=== PATIENT | male | born 1975 | race Caucasian/White ===

== ENCOUNTER → 2020-12-30 08:34 | Outpatient (CLI) | payer BC, SELFPAY ==
[2020-12-30 10:35] LABS: Vitamin D,25 Hydroxy 17.5 ng/mL
[2020-12-30 10:53] LABS: Anion Gap 7 (5-15); BUN 15 mg/dL (7-18); BUN/Creat Ratio 13.8 RATIO (10-20); Calcium,Total 8.7 mg/dL (8.5-10.1); Chloride 105 mmol/L (98-107); Cholesterol 225 mg/dL (200); Creatinine, Serum 1.09 mg/dL (0.70-1.30); EST Glomerular Filtration Rate 77 mL/min (>60); Est Glom Filt Rate - Afr Amer 93 mL/min (>60); Glucose 103 mg/dL (74-106); High Density Lipoprotein 46 mg/dL; Potassium 3.9 mmol/L (3.5-5.1); Sodium Level 139 mmol/L (136-145); Thyroid Stim Hormone (TSH) 1.26 uIU/mL (0.358-3.74); Triglycerides 213 mg/dL; Very Low Density Lipoprotein 43 mg/dL (5-40)
== END ==
PROVIDERS: PCP Family Medicine; Referring Provider Family Medicine; Visit Provider Family Medicine
DX: Z00.00 Encounter for general adult medical examination without abnormal findings (principal); R53.83 Other fatigue
CPT/HCPCS: 36415; 80048; 80061; 82306; 84403; 84443

== ENCOUNTER 2021-02-12 15:01 | Outpatient (RCR) | payer BC, SELFPAY | END 2021-04-07 23:59 | LOC: IMMUN 15:01 | PROVIDERS: PCP Family Medicine; Referring Provider Family Medicine; Visit Provider Family Medicine | DX: Z23 Encounter for immunization (principal) | CPT/HCPCS: 0001A; 0002A; 91300 ==

== ENCOUNTER 2022-01-18 08:29 | Outpatient (CLI) | payer BC, SELFPAY ==
[2022-01-18 10:12] LABS: Anion Gap 2 (5-15); BUN 16 mg/dL (7-18); BUN/Creat Ratio 15.4 RATIO (10-20); Calcium,Total 8.4 mg/dL (8.5-10.1); Chloride 104 mmol/L (98-107); Cholesterol 211 mg/dL (200); Creatinine, Serum 1.04 mg/dL (0.70-1.30); EST Glomerular Filtration Rate 81 mL/min (>60); Est Glom Filt Rate - Afr Amer 98 mL/min (>60); Glucose 108 mg/dL (74-106); High Density Lipoprotein 55 mg/dL; Potassium 3.9 mmol/L (3.5-5.1); Sodium Level 138 mmol/L (136-145); Triglycerides 108 mg/dL; Very Low Density Lipoprotein 22 mg/dL (5-40)
[2022-01-18 13:43] LABS: Vitamin D,25 Hydroxy 37.2 ng/mL
== END 2022-01-18 23:59 | disposition home or self-care (01) ==
LOC: MFPLAB 08:32
PROVIDERS: PCP Family Medicine; Referring Provider Family Medicine; Visit Provider Family Medicine
DX: Z00.00 Encounter for general adult medical examination without abnormal findings (principal); E55.9 Vitamin D deficiency, unspecified
CPT/HCPCS: 36415; 80048; 80061; 82306

== ENCOUNTER → 2023-01-08 | Outpatient (CLI) | payer BC, SELFPAY ==
[2023-01-08 10:16] LABS: Anion Gap 4 (5-15); BUN 21 mg/dL (7-18); Calcium,Total 9.4 mg/dL (8.5-10.1); Chloride 103 mmol/L (98-107); Cholesterol 235 mg/dL (200); Creatinine, Serum 1.05 mg/dL (0.70-1.30); EST Glomerular Filtration Rate 80 mL/min (>60); Est Glom Filt Rate - Afr Amer 97 mL/min (>60); Glucose 109 mg/dL (74-106); High Density Lipoprotein 57 mg/dL; Potassium 4.3 mmol/L (3.5-5.1); Sodium Level 139 mmol/L (136-145); Triglycerides 105 mg/dL; Very Low Density Lipoprotein 21 mg/dL (5-40)
== END | disposition home or self-care (01) ==
PROVIDERS: PCP Family Medicine; Visit Provider Family Medicine
DX: Z00.00 Encounter for general adult medical examination without abnormal findings (principal)
CPT/HCPCS: 36415; 80048; 80061

== ENCOUNTER → 2023-04-25 | Outpatient (CLI) | payer BC, SELFPAY ==
--- NOTE | 2023-04-25 14:12 | RAD_ITS ---
STUDY: X-RAY - LEFT SHOULDER REASON FOR EXAM: Male, 47 years old. Shoulder pain. TECHNIQUE: 4 view(s) of the shoulder. COMPARISON: None. FINDINGS: Normal glenohumeral articulation. Normal acromioclavicular joint. Normal acromion. Normal humeral head and visualized proximal humerus. Normal soft tissues. Normal visualized pulmonary apex. RAD/Shoulder min 2 Views IMPRESSION: Normal x-ray examination of the shoulder. Electronically Signed: Roger Aburto MD at 15:55 EDT ,
== END | disposition home or self-care (01) ==
PROVIDERS: PCP Family Medicine; Referring Provider Family Medicine; Visit Provider Family Medicine
DX: M25.512 Pain in left shoulder (principal)
CPT/HCPCS: 73030

== ENCOUNTER 2023-05-13 13:10 | Outpatient (RCR) | payer BC, SELFPAY ==
--- NOTE | 2023-05-13 15:34 | HP.PTEVAL ---
Patient's Visit Information Visit Information Visit Information: MONTANA LAURA is a 48 year old M referred to Physical Therapy by Dr. Ray Barboza MD with a diagnosis of L shoulder pain. Date of Evaluation: 05/13/23 Physical Therapist: Emmett Fontenot DPT Visit Plan Frequency: Every Other Week Duration: 2 Months Plan: Start with progressive ROM exercise both passive and active. Pt. to work on his HEP for L shoulder ROM for 3-4 weeks then follow back up with PT as need. Pt. can follow up sooner if needed. Subjective Subjective: Pt. is here today for his initial evaluation with diagnosis of L shoulder pain. Pt. reports having increased L shoulder pain for ~1 month. He reports that his pain started after resuming in swimming laps again. Pt. reports since then he has had increased L shoulder pain. He has difficulty with lifting his arm above his head, behind his back and with lifting. Pt. had tried some exercises at home he saw on the internet, but has not had much success. He had an xray- read normal. Pt. does have some pain with sleeping on his L side as well. Pain L shoulder: Pain Intensity (Out of 10): 3 Pain Intensity Range: 0 and 6 Objective Objective: POSTURE: pt. has L shoulder in IR positioning with slight forward positioning. PALPATION: pt. has tenderness at anterior shoulder, near bicipital groove. NEURO: normal throughout BUEs. ROM: R shoulder: full motion no issues. L shoulder: AROM: flexion 145deg, abd 125deg, functional ER C3 aberrant motions, functional IR L3. Pt. had increased pain limiting all motions. PROM: flexion 155deg, abd 145deg, ER at 90deg of abd 30deg, IR at 90deg of abd 20deg. MMT: R shoulder: 5/5 throughout; L shoulder: flexion 5-/5 NE, abd 5-/5 NE, ER 4+/5 NE, IR 5/5 NE, ext 5/5 NE. Special Tests L Shoulder Drop Sign - IS Test: Negative L Shoulder Empty Can - SS: Negative L Shoulder Belly Press - SupScap: Negative L Shoulder Neer - Impingement: Positive L Shoulder Andino El - Impingement: Positive L Shoulder Speeds Test - Labrum/Biceps: Positive L Shoulder Shrug Sign - OA/Adhesive Capsulitis: Positive Balance/Special Test Scores Quick DASH Score: 22.7250 Goals Goal 1:: LTG: Pt. to be I with HEP for LUE ROM and strengthening. Goal Time Frame: 4-6 Weeks Goal 2:: LTG: pt. to have increased L shoulder AROM to full without increase in symptoms. Goal Time Frame: 4-6 Weeks Goal 3:: LTG: pt. to have 5/5 strength of LUE without increase in symptoms. Goal Time Frame: 4-6 Weeks Goal 4:: LTG: pt. to sleep without increase in L shoulder pain. Goal Time Frame: 4-6 Weeks Goal 5:: LTG: pt. to resume all recreational activities without increase in symptoms. Goal Time Frame: 4-6 Weeks Rehabilitation Potential Physical Therapy Diagnosis: Pt. has signs and symptoms consistent with L shoulder pain. Pt. has symptoms suggestive of adhesive capsulitis, most likely stemming from a bicipital tendinitis after increased OH activities. Pt. Rehabilitation Potential: Excellent Anticipated Interventions Patient/Client Instruction: Educate patient on: Condition, Plan of Care, Risk Factors and Benefits of Fitness Program For the Purpose of:: To facilitate caregiver knowledge, To improve self management, To prevent re-injury, To improve ability to perform tasks related to life management and To improve tolerance to ADL's Therapeutic Exercise to Include: Strength training, Power training, Postural training, Flexibilty training, Passive ROM and Active ROM For the Purpose of:: To decrease pain, To increase ROM, To increase oxygenation perfusion, To improve muscle performance and motor function, To improve ability to perform ADL's, To decrease soft tissue restriction and To increase flexibility/ROM Text: Thank you for the opportunity to evaluate your patient. For Medicare and Medicare HMO plans, please review the plan of care and approve it. It will need to be FAXED BACK to us at [phone] for Medicare purposes. For Medicare only, by signing this I certify the plan of care. Please let me know if there are questions or concerns regarding this plan of care. Physician Signature: Date:
== END 2023-05-13 19:00 | disposition home or self-care (01) ==
LOC: PT 13:10
PROVIDERS: PCP Family Medicine; Referring Provider Family Medicine; Visit Provider Family Medicine
DX: M25.512 Pain in left shoulder (principal)
CPT/HCPCS: 97110; 97161

== ENCOUNTER → 2024-01-07 | Outpatient (CLI) | payer BC, SELFPAY ==
--- OUTSIDE RECORDS SUMMARY | 2024-01-07 08:11 | XMS RPT_ITS | CCD ---
Author Name Unknown Address [address] [place] [id number] Organization [facility] Care Team Providers Care Bus Inspector Name Role Phone Unavailable Primary Care Provider Unavailabl e Allergies Allergy Classification Reported Allergen(s) Allergy Type Date of Onset Reaction(s) Facility (2 sources) Ampicillin; Translations: [AMPICILLIN] Drug Allergy 01-18-2013 [facility] (2 sources) Penicillins; Translations: [PENICILLINS] Drug Allergy 01-18-2013 [facility] Medications Current Medications Medication Drug Class(es) Dates Sig (Normalized) Sig (Original) cephalexin 500 mg oral capsule (1 source) Cephalosporin Antibacterial Start: 01-06-2023 End: 01-16-2023 take 1 capsule by mouth twice daily cephALEXin (KEFLEX) 500 mg capsule Indications: Strep throat Take 1 capsule by mouth twice daily for 10 days. 20 capsule 0 01/06/2023 01/16/2023 Active Completed/Discontinued Medications Medication Drug Class(es) Dates Sig (Normalized) Sig (Original) benzonatate 100 mg oral capsule (1 source) Non-narcotic Antitussive Start: 01-22-2016 take 1 capsule by mouth three times daily as needed for cough benzonatate (TESSALON PERLE) 100 mg capsule Indications: Acute bronchitis, unspecified organism Take 1 capsule by mouth three times daily as needed for Cough. 30 capsule 0 01/22/2016 Active Problems Problem Classification Problem Date Documented Da te Episodic/Chronic Other upper respiratory infections (2 sources) Sore throat symptom; Translations: [Acute pharyngitis, unspecified] Episodic Results Test Name Value Interpretation Reference Range Facil ity Vital Signs Date Time Vital Sign Value Performing Clinician Facnina litzain 01-06-2023 10:56-0500 Body temperature 98.2 [degF] Griffin Blair APRN.SALESPERSON [employer] Work Phone: [facility] 01-06-2023 10:56-0500 Body weight 89.45 kg Griffin Blair REHABILITATION COUNSELLOR.SALESPERSON [employer] Work Phone: [facility] 01-06-2023 10:56-0500 Diastolic blood pressure 66 mm[Hg] Griffin Blair REHABILITATION COUNSELLOR.SALESPERSON [employer] Work Phone: [facility] 01-06-2023 10:56-0500 Heart rate 67 /min Griffin Blair REHABILITATION COUNSELLOR.SALESPERSON [employer] Work Phone: [facility] 01-06-2023 10:56-0500 Respiratory rate 18 /min Griffin Blair REHABILITATION COUNSELLOR.SALESPERSON [employer] Work Phone: [facility] 01-06-2023 10:56-0500 SaO2% (BldA) [Mass fraction] 97 % Griffin Blair REHABILITATION COUNSELLOR.SALESPERSON [employer] Work Phone: [facility] 01-06-2023 10:56-0500 Systolic blood pressure 110 mm[Hg] Griffin Blair REHABILITATION COUNSELLOR.SALESPERSON [employer] Work Phone: [facility] Encounters Encounter Date Encounter Type Care Provider Facility Start: 01-06-2023 End: 01-06-2023 ambulatory Facility:[facility] Start: 01-06-2023 End: 01-06-2023 Patient encounter procedure Griffin Blair APRN.SALESPERSON [employer]ES Work Phone: [facility] Procedures Date Procedure Procedure Detail Performing Clinician Start: 01-06-2023 STREP A MOLECULAR (POC) [facility] Provider Plan of Treatment Date Care Activity Detail Author Start: 10-31-2022 DEPRESSION ASSESSMENT DEPRESSION ASSESSMENT [facility] Start: 07-01-2022 Influenza vaccination INFLUENZA (#1) [facility] Start: 2019 COLOGUARD (FIT-DNA) COLOGUARD (FIT-DNA) [facility] Start: 2019 Colonoscopy COLONOSCOPY [facility] Start: 2019 COLORECTAL CANCER SCREENING COLORECTAL CANCER SCREENING [facility] Start: [address] COLONOGRAPHY [facility] Start: 2019 DIABETES SCREEN DIABETES SCREEN [facility] Start: 2019 FECAL OCCULT BLOOD FECAL OCCULT BLOOD [facility] Start: 2019 SIGMOIDOSCOPY SIGMOIDOSCOPY [facility] Start: 2009 LIPID SCREEN LIPID SCREEN [facility] Start: 1993 Urine microalbumin profile DTAP,TDAP,TD (1 - Tdap) [facility] Start: 1992 HEPATITIS C SCREENING HEPATITIS C SCREENING [facility] Start: 1992 HIV SCREENING HIV SCREENING [facility] Start: 1974 COVID-19 VACCINE (#1) COVID-19 VACCINE (#1) [facility] Start: 1974 HEPATITIS B (1 of 3 - 3-dose series) HEPATITIS B (1 of 3 - 3-dose series) [facility] ALERE STREP A TEST (AG) ALERE ST REP A TEST (AG) Lab Routine Sore throat Ordered: 01/06/2023 [facility] Work Phone: Payers Date Payer Category Payer Unknown [employer] PPO OOS [id number] 2009-Present [phone] [address] [place] [address] PPO [id number] 2009 Unknown [id number] Social History Date Type Detail Facility Tobacco smoking status NHIS Never smoked tobacco [facility] Start: 01-06-2023 [facility] Start: 1975 Sex Assigned At Not on file C [facility] Progress note 01-06-2023 Note Date & Type Note Facility 01-06-2023 Note HNO ID: [id number] Author: Griffin Blair APRN.SALESPERSON [employer]ES Service: ? Author Type: Nurse Practitioner Type: Progress Notes Filed: 01/06/2023 11:20 AM Note Text: Subjective HPI HPI Montana Todd is a 47 year old male who presents today for CC of st. This started 3 days ago. Has tried otc medication for relief. Symptoms are worsened by nothing. Risk factors sick exposures at home. .Patient presents with: Throat Problem: Pt reported throat pain x3 days. No past medical history on file. No past surgical history on file. ALLERGIES Ampicillin and Penicillins MEDICATIONS cholecalciferol (VITAMIN D3) 5,000 unit tab Take 5,000 Units by mouth once daily. benzonatate (TESSALON PERLE) 100 mg capsule Take 1 capsule by mouth three times daily as needed for Cough. (Patient not taking: Reported on 01/06/2023) No family history on file. Social History Tobacco Use Smoking status: Never Smokeless tobacco: Never Substance Use Topics Drug use: Never Review of Systems Constitutional: Negative for fever. HENT: Positive for sore throat. Negative for congestion, ear pain and nosebleeds. Respiratory: Negative for cough, shortness of breath and wheezing. Musculoskeletal: Negative for neck pain. Objective Blood pressure 110/66, pulse 67, temperature 36.8 ?C (98.2 ?F), temperature source Tympanic, resp. rate 18, weight 89.4 kg (197 lb 3.2 oz), SpO2 97 %. Physical Exam Constitutional: General: He is not in acute distress. Appearance: He is not toxic-appearing or diaphoretic. HENT: Head: Normocephalic and atraumatic. Right Ear: Hearing, tympanic membrane, ear canal and external ear normal. Left Ear: Hearing, tympanic membrane, ear canal and external ear normal. Nose: Nose normal. Mouth/Throat: Pharynx: Uvula midline. Posterior oropharyngeal erythema present. No pharyngeal swelling, oropharyngeal exudate or uvula swelling. Eyes: General: Lids are normal. No scleral icterus. Right eye: No discharge. Left eye: No discharge. Conjunctiva/sclera: Conjunctivae normal. Pupils: Pupils are equal, round, and reactive to light. Neck: Trachea: Trachea normal. Cardiovascular: Rate and Rhythm: Normal rate and regular rhythm. Heart sounds: Normal heart sounds. Pulmonary: Effort: Pulmonary effort is normal. Breath sounds: Normal breath sounds. Musculoskeletal: Cervical back: Normal range of motion and neck supple. Lymphadenopathy: Cervical: Cervical adenopathy present. Right cervical: Superficial cervical adenopathy present. Left cervical: Superficial cervical adenopathy present. Skin: Findings: No rash. Neurological: Mental Status: He is alert and oriented to person, place, and time. ASSESSMENT/PLAN: 1. Strep throat - ICD9: 034.0, ICD10: J02.0 (primary diagnosis) - suspect strep - Alere Strep Test pos, no culture pending - antibiotic as written - Discussed supportive care treatment with fluids, rest and analgesia. - Contagious dz precautions discussed- including considered contagious until on antibiotics for 24 hours - The patient should follow up in 3-5 days if symptoms persist or worsen - CEPHALEXIN 500 MG CAPSULE 2. Sore throat - ICD9: 462, ICD10: J02.9 Pos, strep - ALERE STREP A TEST (AG) Griffin Blair APRN.CANDELARIA [facility] History of Present illness Narrative 01-06-2023 Griffin Blair APRN.CANDELARIA - 01/06/2023 10:58 AM EST Note Date & Type Note Facility 01-06-2023 History of Presen t illness Narrative Subjective HPI HPI Montana Todd is a 47 year old male who presents today for CC of st. This started 3 days ago. Has tried otc medication for relief. Symptoms are worsened by nothing. Risk factors sick exposures at home. .Patient presents with: Throat Problem: Pt reported throat pain x3 days. No past medical history on file. No past surgical history on file. ALLERGIES Ampicillin and Penicillins MEDICATIONS cholecalciferol (VITAMIN D3) 5,000 unit tab Take 5,000 Units by mouth once daily. benzonatate (TESSALON PERLE) 100 mg capsule Take 1 capsule by mouth three times daily as needed for Cough. (Patient not taking: Reported on 01/06/2023) No family history on file. Social History Tobacco Use Smoking status: Never Smokeless tobacco: Never Substance Use Topics Drug use: Never Review of Systems Constitutional: Negative for fever. HENT: Positive for sore throat. Negative for congestion, ear pain and nosebleeds. Respiratory: Negative for cough, shortness of breath and wheezing. Musculoskeletal: Negative for neck pain. Objective Blood pressure 110/66, pulse 67, temperature 36.8 C (98.2 F), temperature source Tympanic, resp. rate 18, weight 89.4 kg (197 lb 3.2 oz), SpO2 97 %. Physical Exam Constitutional: General: He is not in acute distress. Appearance: He is not toxic-appearing or diaphoretic. HENT: Head: Normocephalic and atraumatic. Right Ear: Hearing, tympanic membrane, ear canal and external ear normal. Left Ear: Hearing, tympanic membrane, ear canal and external ear normal. Nose: Nose normal. Mouth/Throat: Pharynx: Uvula midline. Posterior oropharyngeal erythema present. No pharyngeal swelling, oropharyngeal exudate or uvula swelling. Eyes: General: Lids are normal. No scleral icterus. Right eye: No discharge. Left eye: No discharge. Conjunctiva/sclera: Conjunctivae normal. Pupils: Pupils are equal, round, and reactive to light. Neck: Trachea: Trachea normal. Cardiovascular: Rate and Rhythm: Normal rate and regular rhythm. Heart sounds: Normal heart sounds. Pulmonary: Effort: Pulmonary effort is normal. Breath sounds: Normal breath sounds. Musculoskeletal: Cervical back: Normal range of motion and neck supple. Lymphadenopathy: Cervical: Cervical adenopathy present. Right cervical: Superficial cervical adenopathy present. Left cervical: Superficial cervical adenopathy present. Skin: Findings: No rash. Neurological: Mental Status: He is alert and oriented to person, place, and time. ASSESSMENT/PLAN: 1. Strep throat - ICD9: 034.0, ICD10: J02.0 (primary diagnosis) - suspect strep - Alere Strep Test pos, no culture pending - antibiotic as written - Discussed supportive care treatment with fluids, rest and analgesia. - Contagious dz precautions discussed- including considered contagious until on antibiotics for 24 hours - The patient should follow up in 3-5 days if symptoms persist or worsen - CEPHALEXIN 500 MG CAPSULE 2. Sore throat - ICD9: 462, ICD10: J02.9 Pos, strep - ALERE STREP A TEST (AG) Griffin Blair APRN.CANDELARIA documented in this encounter [facility] Evaluation note Note Date & Type Note Facility documented in this encounter [facility] Summary Purpose Family History No Family History Records Found Advance Directives No Advanced Directives Records Found Additional Source Comments Source Comments (unrecognize d section and content) In the event this informatio n is protected by the Federal Confidentiality of Alcohol and Drug Abuse Patient Records regulations: The Federal rules restrict any use of the information to criminally investigate or prosecute any alcohol or drug abuse patient.[facility] Reason for Visit (unrecogniz ed section and content) (unrecognized sect ion and content) No Status Records Found INFORMATION SOURCE (unrecogn ized section and content) FOR RECORDS PERTAINING TO PATIENTS WHO ARE OR HAVE BEEN ENROLLED IN A CHEMICAL DEPENDENCY/SUBSTANCEABUSE PROGRAM, SOME INFORMATION MAY BE OMITTED. This clinical summary was aggregated from multiple sources. Caution should be exercised in using it in the provision of clinical care. This summary normalizes information from multiple sources, and as a consequence, information in this document may materially change the coding, format and clinical context of patient data. In addition, data may be omitted in some cases. CLINICAL DECISIONS SHOULD BE BASED ON THE PRIMARY CLINICAL RECORDS. [employer] [facility]. provides no warranty or guarantee of the accuracy or completeness of information in this document.
[2024-01-07 08:59] LABS: ALB/GLOB Ratio 1.2 RATIO (0.9-2.4); AST(SGOT) 21 U/L (15-37); Alanine Aminotransfer ALT/SGPT 27 U/L (16-61); Albumin, Serum 3.7 g/dL (3.2-5.0); Alkaline Phosphatase 51 U/L (45-117); Anion Gap 1 (5-15); BUN 18 mg/dL (7-18); BUN/Creat Ratio 16.8 RATIO (10-20); Calcium,Total 8.9 mg/dL (8.5-10.1); Chloride 106 mmol/L (98-107); Cholesterol 173 mg/dL (200); Creatinine, Serum 1.07 mg/dL (0.70-1.30); EST Glomerular Filtration Rate 78 mL/min (>60); Est Glom Filt Rate - Afr Amer 94 mL/min (>60); Globulin 3.2 g/dL (2.2-4.2); Glucose 104 mg/dL (74-106); High Density Lipoprotein 62 mg/dL; Potassium 4.2 mmol/L (3.5-5.1); Protein, Total 6.9 g/dL (6.4-8.2); Sodium Level 139 mmol/L (136-145); Triglycerides 110 mg/dL; Very Low Density Lipoprotein 22 mg/dL (5-40)
== END | disposition home or self-care (01) ==
LOC: LAB 07:56
PROVIDERS: PCP Family Medicine; Referring Provider Family Medicine; Visit Provider Family Medicine
DX: Z00.00 Encounter for general adult medical examination without abnormal findings (principal)
CPT/HCPCS: 36415; 80053; 80061

== ENCOUNTER 2024-03-08 11:39 | Day surgery (SDC) | payer BC, SELFPAY ==
[2024-03-08 12:18] VITALS: BP 113/83; PULSE 81; RESP 16; TEMP 36.6; O2SAT 99; BMI 27.5
--- NOTE | 2024-03-08 12:20 | HP.PCM_ITS ---
[facility] - General General Date of Service: 03/08/24 [facility] Narrative MONTANA LAURA, is a 48 M who presents for screening colonoscopy. Patient never had previous colonoscopy. Patient denies any family history of colon cancer. Patient bowel movements daily denies any blood. Patient denies any chronic abdominal pain/nausea/vomiting/reflux. [facility] Medical History (Updated 03/05/24 @ 12:16 by Monica Rees) Alcohol use Anxiety Cancer Gastric reflux High cholesterol Hyperlipemia Non-smoker Squamous cell carcinoma in situ Wears glasses Home Medications cholecalciferol (vitamin D3) 50 mcg (2,000 unit) capsule 25 mcg PO DAILY 02/16/24 [History Last Taken 03/07/24] rosuvastatin 5 mg tablet 5 mg PO DAILY 02/16/24 [History Last Taken 03/07/24] ascorbic acid (vitamin C) 500 mg tablet,extended release (C Complex) 500 mg PO DAILY 03/05/24 [History Last Taken 03/07/24] Allergy/AdvReac Type Severity Reaction Status Date / Time ampicillin Allergy Intermediate Hives Verified 03/08/24 12:11 Penicillins Allergy Hives Verified 03/08/24 12:11 Family History (Updated 02/16/24 @ 09:22 by Chastity Blair) Mother Diabetes Kidney disease Cancer Surgical History (Updated 03/05/24 @ 12:16 by Monica Rees) Hx of tonsillectomy Hx of wisdom tooth extraction Social History (Updated 02/16/24 @ 09:22 by Chastity Blair) household members: spouse and children current occupational status: employed Smoking Status: Never smoker alcohol intake: current alcohol intake frequency: holidays/special occasions only substance use type: does not use Past Medical/Surgical History Planned Operation Planned Operative Procedure/s: COLONOSCOPY-OA Previous Hospitalizations/Surgeries HX Hospitalizations: No Any Problems With Anesthesia: No You/Your Family Experience Fever (Hyperthermia) With Anes: No Cholinesterase deficiency: No Cardiovascular Hx Hypertension: No Respiratory Hx Sleep Apnea: No Hx Respiratory Tract Infection/Cold (presently): No Do You Snore Loudly (louder than talking or can be heard): No Do You Often Feel Tired/ Fatigued/ Sleepy Dring Daytime?: No Has Anyone Observed You Stop Breathing During Sleep?: No Result (for STOP score): Negative Smoking Status: Never smoker Neurological Does patient have nerve stimulator: No Allergies ampicillin Allergy (Intermediate, Verified 03/08/24 12:11) Hives Penicillins Allergy (Verified 03/08/24 12:11) Hives In childhood Discharge Is Pt Admitted From a Group Home, or a Prison: No After D/C, Where Do you Plan to Go: Return Home Physical Exam Const alert, oriented x3 and no apparent distress HEENT normocephalic and head/scalp atraumatic Resp normal respiratory effort Cardio regular rate GI soft to palpation and non-tender; Negative for non-distended Palpation: Negative for guarding Extremity no clubbing, cyanosis or edema Skin no rashes or lesions noted Neuro CN's II-XII intact bilaterally Psych mental status grossly normal Assessment & Plan Assessment/Plan (1) Encounter for screening for malignant neoplasm of colon: Surgery Risks - Colonoscopy I discussed with the patient the risks of the procedure: Yes Risks Include but are not Limited To: Risks include but are not limited to: Bleeding, perforation requiring further surgery, inability to complete colonoscopy requiring barium enema.
[2024-03-08] MEDS: Lactated Ringers 1,000 ML 15 ML IV (12:31)
--- NOTE | 2024-03-08 13:00 | COLBX_PTH ---
PATIENT: MONTANA LAURA LOC: EN U#:[id number] AGE/SX: 48/M ROOM: RE03/08/[address]: Dr. Marlene Beth MD : 1975 BED: DIS: 03/08/2024 SPEC #: [id number] RECD: 03/08/24 14:59 STATUS: MARNI VANITA #: [id number] ZULAY: 03/08/24 13:[address]: Marlene Beth DEPT: SURGICAL PATHOLOGY RECD BY: Shanice Hebert ENTERED: 03/09/24 07:09 SP TYPE: COLON BX OTHR DR: Dr. Ray Barboza MD Tissues: Sigmoid colon biopsy Procedures: Surgery Specimen Level IV HEADER OPERATION: Colonoscopy biopsy PRE-OP DIAGNOSIS: Encounter for screening for malignant neoplasm of colon TISSUE SUBMITTED: Sigmoid polyp biopsy MICROSCOPIC DIAGNOSIS Sigmoid colon polyp, biopsy: Fragments of hyperplastic polyp. AM/mr 03/12/2024 MICROSCOPIC DESCRIPTION Slides are reviewed. GROSS DESCRIPTION Received in fixative is one container labeled with the patient's name and designated Sigmoid polyp biopsy. The specimen consists of one irregular fragment of light bang soft tissue that measures 0.4 x 0.3 x 0.1 cm. The specimen is totally submitted in one cassette. MELISSA/ 03/09/2024 TC:5 CPT:35674
[2024-03-08 13:30] VITALS: BP 113/83; BP 99/68; PULSE 70; RESP 16; TEMP 36.4; O2SAT 97
--- NOTE | 2024-03-08 13:32 | OP.CCLET_ITS ---
03/08/2024 Ray Barboza MD [address] [place] [address] Re : Colonoscopy procedure for Ben Todd Dear Dr. Barboza This procedure was performed on February. My impressions and recommendations are as follows: Impressions : - Two less than 5 mm polyps in the sigmoid colon, removed with a cold biopsy forceps. Resected and retrieved. - The examination was otherwise normal on direct and retroflexion views. Recommendations : - Discharge patient to home. - Resume previous diet. - Continue present medications. - Await pathology results. - Repeat colonoscopy in 5-10 years for surveillance based on pathology results. My findings are described in the full procedure note, which is enclosed. If I can be of further assistance, please feel free to contact me at Doctor phone number(s): , Work: . Sincerely, MD Marlene Goldman MD 03/08/2024 1:32:19 PM This report has been signed electronically.
--- NOTE | 2024-03-08 13:32 | OP.COLON_ITS ---
Patient Name: Ben Todd Procedure Date: 03/08/2024 1:01 PM Date of : 1975 Age: 48 Procedure: Colonoscopy Indications: Screening for colorectal malignant neoplasm Providers: Marlene Beth MD Referring MD: Ray Barboza MD Medicines: Monitored Anesthesia Care Patient Profile: This is a 48 year old male. Last Colonoscopy: none. The patient's first colonoscopy is today. Complications: No immediate complications. Procedure: Pre-Anesthesia Assessment: - Prior to the procedure, a History and Physical was performed, and patient medications and allergies were reviewed. The patient's tolerance of previous anesthesia was also reviewed. The risks and benefits of the procedure and the sedation options and risks were discussed with the patient. All questions were answered, and informed consent was obtained. Prior Anticoagulants: The patient has taken no anticoagulant or antiplatelet agents. ASA Grade Assessment: Per anesthesia. After reviewing the risks and benefits, the patient was deemed in satisfactory condition to undergo the procedure. After I obtained informed consent, the scope was passed under direct vision. Throughout the procedure, the patient's blood pressure, pulse, and oxygen saturations were monitored continuously. The Colonoscope was introduced through the anus and advanced to the cecum, identified by the appendiceal orifice, ileocecal valve and palpation. The colonoscopy was performed without difficulty. The patient tolerated the procedure well. The quality of the bowel preparation was good. Scope In: 1:09:49 PM Scope Withdrawal Time 0 hours 9 minutes 32 seconds Scope Out: 1:26:48 PM Total Procedure Duration Time 0 hours 16 minutes 59 seconds Findings: The perianal and digital rectal examinations were normal. Two sessile polyps were found in the sigmoid colon. The polyps were less than 5 mm in size. These polyps were removed with a cold biopsy forceps. Resection and retrieval were complete. The exam was otherwise without abnormality on direct and retroflexion views. Impression: - Two less than 5 mm polyps in the sigmoid colon, removed with a cold biopsy forceps. Resected and retrieved. - The examination was otherwise normal on direct and retroflexion views. Recommendation: - Discharge patient to home. - Resume previous diet. - Continue present medications. - Await pathology results. - Repeat colonoscopy in 5-10 years for surveillance based on pathology results. Procedure Code(s): --- Professional --- 73119, PT, Colonoscopy, flexible; with biopsy, single or multiple Diagnosis Code(s): --- Professional --- Z12.11, Encounter for screening for malignant neoplasm of colon D12.5, Benign neoplasm of sigmoid colon CPT copyright 2021 [employer]. All rights reserved. The codes documented in this report are preliminary and upon planning technician review may be revised to meet current compliance requirements. MD Marlene Goldman MD 03/08/2024 1:32:19 PM This report has been signed electronically. Number of Addenda: 0 Note Initiated On: 03/08/2024 1:01 PM
[2024-03-08 13:35] VITALS: BP 104/70; BP 113/83; PULSE 66; RESP 16; O2SAT 98
[2024-03-08 13:40] VITALS: BP 101/68; BP 113/83; PULSE 70; RESP 16; O2SAT 98
[2024-03-08 13:50] VITALS: BP 106/77; BP 113/83; PULSE 65; RESP 16; TEMP 36.9; O2SAT 99
[2024-03-08 14:11] VITALS: BP 113/83
== END 2024-03-08 14:13 | disposition home or self-care (01) ==
LOC: EN 11:39 → AC 12:08
PROVIDERS: PCP Family Medicine; Referring Provider Family Medicine; Visit Provider Surgery
PROC: 0DJD8ZZ Inspection of Lower Intestinal Tract, Via Natural or Artificial Opening Endoscopic (ICD-10-PCS; CPT 45378; principal; 2024-03-08 12:55)
DX: Z12.11 Encounter for screening for malignant neoplasm of colon (principal); K63.5 Polyp of colon; Z85.828 Personal history of other malignant neoplasm of skin; Z79.899 Other long term (current) drug therapy
CPT/HCPCS: 45380; 88305; J7120; J2405